=== PATIENT | male | born 1955 | race Caucasian/White ===

== ENCOUNTER 2019-06-14 21:15 | Emergency (ER) | payer MEDICARE, MEDICAID ==
--- NOTE | 2019-06-14 22:02 | EDM.PDOC ---
ED HPI GENERAL MEDICAL PROBLEM - General Chief Complaint: General Stated Complaint: MEDICAL VIA NORTH Time Seen by Provider: 06/14/19 22:00 Source of Information: Reports: Patient History Limitations: Reports: No Limitations - History of Present Illness INITIAL COMMENTS - FREE TEXT/NARRATIVE: There was concern that pt had some very cold feet and they did look a little bluish. He has been more lethargic than usual today. He did eat 2 meals but did not drink his usual volume of fluid. Onset: Today Duration: Hour(s): Location: Reports: Lower Extremity, Left, Lower Extremity, Right, Generalized, Other (pt has been more lethargic. He did have some bright red blood coming from the rectum when he was wiped. ) - Related Data Allergies Allergy/AdvReac Type Severity Reaction Status Date / Time Cephalosporins Allergy Cannot Verified 06/14/19 21:58 Remember codeine Allergy Cannot Verified 06/14/19 21:58 Remember Sulfa (Sulfonamide Allergy Cannot Verified 06/14/19 21:58 Antibiotics) Remember sulfamethoxazole Allergy Cannot Verified 06/14/19 21:58 [From Bactrim] Remember trimethoprim [From Bactrim] Allergy Cannot Verified 06/14/19 21:58 Remember Home Meds: Home Meds Amoxicillin/Potassium Clav [Amox-Clav 875-125 mg Tablet] 1 tab PO BID 06/14/19 [ History] Calcium Carbonate/Vitamin D3 [Calcium 600 + Vit D 200] 1 tab PO DAILY 06/14/19 [ History] Ciclopirox 1 applic TOP DAILY 06/14/19 [History] Ergocalciferol (Vitamin D2) [Vitamin D2] 1 tab PO DAILY 06/14/19 [History] Fluticasone Propionate [Flonase] 1 spray INH DAILY 06/14/19 [History] Gabapentin [Neurontin] 1 tab PO TID 06/14/19 [History] Polyethylene Glycol 3350 [Clearlax] 1 packet PO DAILY 06/14/19 [History] Pravastatin Sodium 1 tab PO DAILY 06/14/19 [History] Pseudoephedrine HCl [Sudogest] 1 tab PO BID 06/14/19 [History] carBAMazepine [carBAMazepine ER] 1 tab PO BID 06/14/19 [History] Past Medical History Neurological History: Reports: Seizure, Other (See Below) Other Neuro History: hydrachep Social & Family History - Tobacco Use Smoking Status *Q: Never Smoker ED ROS GENERAL - Review of Systems Review Of Systems: See Below Constitutional: Reports: Other (pt has been more lethargic. ) HEENT: Reports: No Symptoms Respiratory: Reports: No Symptoms, Other (pt had good oxgenation) Cardiovascular: Reports: No Symptoms Endocrine: Reports: No Symptoms GI/Abdominal: Reports: No Symptoms, Other (pt ate very slowly and his intake was not good as usual. ) : Reports: No Symptoms Musculoskeletal: Reports: No Symptoms Skin: Reports: No Symptoms Neurological: Reports: Other (more lethargic) ED EXAM, GENERAL - Physical Exam Exam: See Below Free Text/Narrative:: pt arrived with very cold feet and at this time they looked quite red. He was more lethargic according to the staff. Exam Limited By: No Limitations General Appearance: Alert, Other (pupils equal and reactive. ) Ears: Normal TMs Nose: Normal Inspection Throat/Mouth: Normal Inspection Head: Atraumatic Neck: Normal Inspection Respiratory/Chest: No Respiratory Distress Cardiovascular: Regular Rate, Rhythm, Other (pulse was 60-70. ) GI/Abdominal: Soft, Non-Tender (Male) Exam: Deferred Rectal (Males) Exam: Deferred Back Exam: Normal Inspection Extremities: Other ( feet look quite red. Pulses are present but diminished-- bilaterally equal. ) Neurological: Alert, Other (pt is a nonverbal person. ) Course - Vital Signs Last Recorded V/S: Last Vital Signs Temp 35.2 C 06/14/19 21:53 Pulse 64 06/14/19 22:47 Resp 16 06/14/19 21:53 BP 122/73 06/14/19 22:47 Pulse Ox 97 06/14/19 22:47 - Orders/Labs/Meds Labs: Laboratory Tests 06/14/19 06/14/19 06/14/19 Range/Units 21:50 21:51 21:53 WBC 14.3 H (4.5-11.0) K/uL RBC 4.86 (4.30-5.90) M/uL Hgb 14.4 (12.0-15.0) g/dL Hct 43.4 (40.0-54.0) % MCV 89 (80-98) fL MCH 30 (27-31) pg MCHC 33 (32-36) % Plt Count 169 (150-400) K/uL Neut % (Auto) 83 H (36-66) % Lymph % (Auto) 9 L (24-44) % [place] % (Auto) 7 H (2-6) % Eos % (Auto) 1 L (2-4) % Baso % (Auto) 0 (0-1) % Sodium (140-148) mmol/L Potassium (3.6-5.2) mmol/L Chloride (100-108) mmol/L Carbon Dioxide (21-32) mmol/L Anion Gap (5.0-14.0) mmol/L BUN (7-18) mg/dL Creatinine (0.8-1.3) mg/dL Est Cr Clr Drug Dosing mL/min Estimated GFR (MDRD) (>60) Glucose (74-106) mg/dL Lactic Acid 2.2 H (0.4-2.0) mmol/L Calcium (8.5-10.1) mg/dL Total Bilirubin (0.2-1.0) mg/dL AST (15-37) U/L ALT (12-78) U/L Alkaline Phosphatase (46-116) U/L C-Reactive Protein 1.18 H (0.0-0.3) mg/dL Total Protein (6.4-8.2) g/dL Albumin (3.4-5.0) g/dL Globulin (2.3-3.5) g/dL Albumin/Globulin Ratio (1.2-2.2) Urine Color (YELLOW) Urine Appearance (CLEAR) Urine pH (5.0-8.0) Ur Specific [place] (1.008-1.030) Urine Protein (NEGATIVE) mg/dL Urine Glucose (UA) (NEGATIVE) mg/dL Urine Ketones (NEGATIVE) mg/dL Urine Occult Blood (NEGATIVE) Urine Nitrite (NEGATIVE) Urine Bilirubin (NEGATIVE) Urine Urobilinogen (0.2-1.0) EU/dL Ur Leukocyte Esterase (NEGATIVE) Urine RBC (0-5) Urine WBC (0-5) Ur Epithelial Cells Amorphous Sediment Urine Bacteria Urine Mucus 06/14/19 06/15/19 Range/Units 21:53 00:05 WBC (4.5-11.0) K/uL RBC (4.30-5.90) M/uL Hgb (12.0-15.0) g/dL Hct (40.0-54.0) % MCV (80-98) fL MCH (27-31) pg MCHC (32-36) % Plt Count (150-400) K/uL Neut % (Auto) (36-66) % Lymph % (Auto) (24-44) % [place] % (Auto) (2-6) % Eos % (Auto) (2-4) % Baso % (Auto) (0-1) % Sodium 140 (140-148) mmol/L Potassium 4.2 (3.6-5.2) mmol/L Chloride 101 (100-108) mmol/L Carbon Dioxide 32 (21-32) mmol/L Anion Gap 7.4 (5.0-14.0) mmol/L BUN 18 (7-18) mg/dL Creatinine 0.9 (0.8-1.3) mg/dL Est Cr Clr Drug Dosing 79.56 mL/min Estimated GFR (MDRD) > 60 (>60) Glucose 139 H (74-106) mg/dL Lactic Acid (0.4-2.0) mmol/L Calcium 9.2 (8.5-10.1) mg/dL Total Bilirubin 0.3 (0.2-1.0) mg/dL AST 21 (15-37) U/L ALT 32 (12-78) U/L Alkaline Phosphatase 58 (46-116) U/L C-Reactive Protein (0.0-0.3) mg/dL Total Protein 7.4 (6.4-8.2) g/dL Albumin 4.1 (3.4-5.0) g/dL Globulin 3.3 (2.3-3.5) g/dL Albumin/Globulin Ratio 1.2 (1.2-2.2) Urine Color Yellow (YELLOW) Urine Appearance Slightly cloudy A (CLEAR) Urine pH 5.5 (5.0-8.0) Ur Specific [place] 1.025 (1.008-1.030) Urine Protein Negative (NEGATIVE) mg/dL Urine Glucose (UA) Negative (NEGATIVE) mg/dL Urine Ketones Negative (NEGATIVE) mg/dL Urine Occult Blood Negative (NEGATIVE) Urine Nitrite Negative (NEGATIVE) Urine Bilirubin Negative (NEGATIVE) Urine Urobilinogen 0.2 (0.2-1.0) EU/dL Ur Leukocyte Esterase Negative (NEGATIVE) Urine RBC 0-5 (0-5) Urine WBC 0-5 (0-5) Ur Epithelial Cells Rare Amorphous Sediment Not seen Urine Bacteria Not seen Urine Mucus Many Meds: Medications Discontinued Medications Generic Name Dose Route Start Last Admin Trade Name Natividad PRN Reason Stop Dose Admin Sodium Chloride 1,000 mls @ 999 mls/hr 06/14/19 22:30 06/14/19 22:56 Normal Saline IV 999 mls/hr ASDIRECTED LORRAINE Administration Nitroglycerin/Dextrose 25 mg in 250 mls @ 6 mls/hr 06/15/19 00:15 Nitroglycerin 25 Mg/D5w 250 Ml IV TITRATE LORRAINE Protocol 10 MCG/MIN Sodium Chloride 1,000 mls @ 999 mls/hr 06/15/19 00:30 06/15/19 00:26 Normal Saline IV 999 mls/hr ASDIRECTED LORRAINE Administration - Re-Assessments/Exams Free Text/Narrative Re-Assessment/Exam: 06/15/19 00:32 wbc is mildly elevated. There is no fever. He has a concentrated urine but it is not infected. He is being treated for a sinus infection with augmentin and has 4-5 more days. A chest xray was done which showed some atelectasis at the base. . He is dehydrated and he was hydrated with 2 liters of fluid. He still has cold feet will wrap in warm blankets. Departure - Departure Time of Disposition: 01:45 Disposition: Home, Self-Care 01 Condition: Fair Clinical Impression: Dehydration, Peripheral vascular disease - Discharge Information Instructions: Peripheral Vascular Disease, Dehydration, Adult Referrals: PCP,None [Primary Care Provider] - Forms: ED Department Discharge Care Plan Goals: push fluids, watch for any temp spikes, Watch for any further rectal bleeding-- pt would not allow an exam, If further concerns call back. Sepsis Event Note - Evaluation Sepsis Screening Result: No Definite Risk - Focused Exam Date Exam was Performed: 06/17/19 Time Exam was Performed: 07:25
[2019-06-14] MEDS ORDERED: Sodium Chloride 0.9% 1,000 ML IV SCH (22:30)
--- NOTE | 2019-06-14 23:20 | CRLCR ---
Indication: Color change. Possible low O2 sats. Technique: Single AP portable view of the chest. Comparison: None Findings: Left basilar atelectasis is identified. The heart is normal in size. No pleural effusion or pneumothorax is identified. Impression: Opacities in the left lung base, most likely representing atelectasis, but infiltrate cannot be excluded Dictated by Nichole Dai MD @ Jun 14 2019 11:17PM Signed by Dr. Nichole Dai @ Jun 14 2019 11:17PM
[2019-06-15] MEDS ORDERED: Nitroglycerin/D5W 25 MG/250 ML BOTTLE IV SCH (00:15)
[2019-06-15] MEDS ORDERED: Sodium Chloride 0.9% 1,000 ML IV SCH (00:30)
== END 2019-06-15 01:57 | disposition home or self-care (01) ==
LOC: JP.ED 21:15
DX: I73.9 Peripheral vascular disease, unspecified (principal); E86.0 Dehydration; Z88.5 Allergy status to narcotic agent; Z88.2 Allergy status to sulfonamides; Z88.1 Allergy status to other antibiotic agents; Z79.899 Other long term (current) drug therapy
CPT/HCPCS: 36415; 71045; 80053; 81001; 83605; 85025; 86140; 96360; 96361; 99283; 99284-25; J7030

== ENCOUNTER 2020-01-28 10:30 | Emergency (ER) | payer MEDICARE, MEDICAID ==
--- NOTE | 2020-01-28 11:47 | EDM.PDOC ---
<Naida Woo M - Last Filed: 01/28/20 13:04> ED HPI GENERAL MEDICAL PROBLEM - General Chief Complaint: General Stated Complaint: MEDICAL VIA [facility]TH Time Seen by Provider: 01/28/20 11:39 Source of Information: Reports: Patient, Other (Care worker from home where patient lives) History Limitations: Reports: No Limitations - History of Present Illness INITIAL COMMENTS - FREE TEXT/NARRATIVE: Patient transported by EMS to ER from [facility]. Report from caregiver that pt "has torso weakness and did not eat cereal as fast as normal" when waking this morning. Caregiver reports pt had trouble with swallowing medications this morning. Pt does move all extremities without deficit and is trying to crawl off the stretcher. Pt does make moaning and incomprehensible sounds. Pt appears to be in no distress based on caregiver knowledge of pt actions and usual reactions. Caregiver indicates that pt has an atypical presentation with illness. caregiver is concerned for heart issues or sinus infection. Onset: Today Onset Date: 01/28/20 Onset Time: 08:00 Duration: Hour(s): Location: Reports: Chest, Other (Weak in torso and difficulty swallowing meds) Quality: Reports: Other (UTD. Pt severely MR. Villasenor is giveing the history with few sign languages from pt) Severity: Mild Improves with: Reports: None, Other ([facility]) Worsens with: Reports: None Associated Symptoms: Reports: No Other Symptoms, Weakness - Related Data Allergies Allergy/AdvReac Type Severity Reaction Status Date / Time Cephalosporins Allergy Cannot Verified 01/28/20 10:33 Remember codeine Allergy Cannot Verified 01/28/20 10:33 Remember Sulfa (Sulfonamide Allergy Cannot Verified 01/28/20 10:33 Antibiotics) Remember sulfamethoxazole Allergy Cannot Verified 01/28/20 10:33 [From Bactrim] Remember trimethoprim [From Bactrim] Allergy Cannot Verified 01/28/20 10:33 Remember Home Meds: Home Meds Ciclopirox 1 applic TOP DAILY 06/14/19 [History] Gabapentin [Neurontin] 600 mg PO TID 06/14/19 [History] Pseudoephedrine HCl [Sudogest] 1 tab PO BID 06/14/19 [History] Acetaminophen [Pain Relief] 650 mg PO BEDTIME 01/28/20 [History] Cetirizine [ZyrTEC] 10 mg PO DAILY 01/28/20 [History] bisacodyL [Dulcolax] 5 mg PO DAILY 01/28/20 [History] clonazePAM [Clonazepam] 1 mg PO BEDTIME 01/28/20 [History] diphenhydrAMINE [Benadryl] 50 mg PO BEDTIME 01/28/20 [History] Past Medical History Neurological History: Reports: Seizure, Other (See Below) Other Neuro History: hydrocephalus, profound mental retardation Social & Family History - Tobacco Use Smoking Status *Q: Never Smoker - Recreational Drug Use Recreational Drug Use: No - Living Situation & Occupation Living situation: Reports: Single, Extended Care Facility ED ROS GENERAL - Review of Systems Review Of Systems: See Below (Pt is nonverbal based on severe MR. Caregiver bedside.) Constitutional: Reports: Weakness HEENT: Reports: No Symptoms Respiratory: Reports: No Symptoms Cardiovascular: Reports: Other (Concern for "heart issues") Endocrine: Reports: No Symptoms GI/Abdominal: Reports: No Symptoms : Reports: No Symptoms Musculoskeletal: Reports: Other (torso weakness) Skin: Reports: No Symptoms Neurological: Reports: No Symptoms Psychiatric: Reports: No Symptoms Hematologic/Lymphatic: Reports: No Symptoms Immunologic: Reports: No Symptoms ED EXAM, GENERAL - Physical Exam Exam: See Below Exam Limited By: Other (History of severe MR. Caregiver bedside. Pt non verbal. Moans and groans.) General Appearance: No Apparent Distress Eye Exam: Bilateral Eye: PERRL Ears: Normal External Exam Ear Exam: Bilateral Ear: Auricle Normal Nose: Normal Inspection Throat/Mouth: Normal Inspection, Normal Lips, Normal Gums, No Airway Compromise Head: Normocephalic Neck: Normal Inspection Respiratory/Chest: No Respiratory Distress, Lungs Clear, Normal Breath Sounds, No Accessory Muscle Use Cardiovascular: Regular Rate, Rhythm, No Edema, No Murmur, No Rub Peripheral Pulses: 2+: Radial (L), Radial (R) GI/Abdominal: Normal Bowel Sounds, Soft (Male) Exam: Deferred Rectal (Males) Exam: Deferred Back Exam: Full Range of Motion Extremities: Normal Inspection, Normal Range of Motion, Normal Capillary Refill Neurological: Alert, Other (Severe MR. Non verbal. Uses a few sign language words) Psychiatric: Other (Baseline ) Skin Exam: Warm, Dry, Intact, Normal Color, Other (Normal self per caregiver) Lymphatic: No Adenopathy EKG INTERPRETATION EKG Date: 01/28/20 Time: 11:36 Rhythm: NSR [place]: Normal P-Wave: Present QRS: Normal ST-T: Normal QT: Normal Course - Re-Assessments/Exams Free Text/Narrative Re-Assessment/Exam: 01/28/20 11:54 Pt triaged to room. Sever Non verbal. Moans and grunts. Waiting for caregiver. EKG, CXR, and labs ordered. EKG -NSR CXR completed 01/28/20 11:57 CBC resulted 01/28/20 12:25 BMP and Trop all resulted. 01/28/20 12:33 All imaging and labs WNl. Will discuss with caregiver and d/c home. Departure - Departure Time of Disposition: 12:33 Disposition: Home, Self-Care 01 Condition: Good Clinical Impression: Near syncope - Discharge Information *PRESCRIPTION DRUG MONITORING PROGRAM REVIEWED*: Not Applicable *COPY OF PRESCRIPTION DRUG MONITORING REPORT IN PATIENT TAY: Not Applicable Instructions: Near-Syncope, Agbn-[id number] Referrals: PCP,None [Primary Care Provider] - Forms: ED Department Discharge Additional Instructions: Will d/c to [facility] with no medication changes. All imaging and labs were negative. If the patient has another episode of weakness, please seek medical care or come to the nearest ER. Sepsis Event Note (ED) - Evaluation Sepsis Screening Result: No Definite Risk - Problem List & Annotations (1) Near syncope SNOMED Code(s): 097860508 Code(s): R55 - SYNCOPE AND COLLAPSE Status: Acute Priority: Low Onset Date: ~01/28/20 - Problem List Review Problem List Initiated/Reviewed/Updated: Yes - Assessment/Plan Assessment:: Will d/c to [facility] with no medication changes. All imaging and labs were negative. If the patient has another episode of weakness, please seek medical care or come to the nearest ER. <Nato Beltran - Last Filed: 01/28/20 13:41> Course - Vital Signs Last Recorded V/S: Last Vital Signs Temp 97.3 F 01/28/20 10:45 Pulse 72 01/28/20 11:28 Resp 18 01/28/20 11:28 BP 129/76 01/28/20 11:28 Pulse Ox 97 01/28/20 11:28 - Orders/Labs/Meds Orders: Active Orders 24 hr Category Date Time Status EKG Documentation Completion [RC] ASDIRECTED Care 01/28/20 11:36 Active EKG 12 Lead [EK] Routine Ther 01/28/20 11:34 Ordered Labs: Laboratory Tests 01/28/20 01/28/20 Range/Units 11:52 11:52 WBC 6.0 (4.5-11.0) K/uL RBC 4.36 (4.30-5.90) M/uL Hgb 12.6 (12.0-15.0) g/dL Hct 38.7 L (40.0-54.0) % MCV 89 (80-98) fL MCH 29 (27-31) pg MCHC 33 (32-36) % Plt Count 99 L (150-400) K/uL Neut % (Auto) 65 (36-66) % Lymph % (Auto) 21 L (24-44) % [place] % (Auto) 12 H (2-6) % Eos % (Auto) 2 (2-4) % Baso % (Auto) 0 (0-1) % Sodium 148 (140-148) mmol/L Potassium 4.1 (3.6-5.2) mmol/L Chloride 112 H (100-108) mmol/L Carbon Dioxide 28 (21-32) mmol/L Anion Gap 12.1 (5.0-14.0) mmol/L BUN 24 H (7-18) mg/dL Creatinine 0.9 (0.8-1.3) mg/dL Est Cr Clr Drug Dosing 79.56 mL/min Estimated GFR (MDRD) > 60 (>60) Glucose 107 H (74-106) mg/dL Calcium 8.8 (8.5-10.1) mg/dL Troponin I < 0.017 (0.000-0.056) ng/mL Departure - Departure Time of Disposition: 12:46 Sepsis Event Note (ED) - Focused Exam Vital Signs: Vital Signs Temp Pulse Resp BP Pulse Ox 01/28/20 11:28 72 18 129/76 97 01/28/20 10:45 97.3 F 96 16 141/78 H 96 01/28/20 10:33 97.3 F 96 16 141/78 H 96 Attestation - Student - Attestation Statement Attestation Statement: I personally performed or re-performed the physical examination and medical decision making. I have verified all student documentation or findings, including history, physical exam and/or medical decision making.
--- NOTE | 2020-01-28 12:47 | CR ---
CHEST: Portable 01/28/2020 11:56 AM CLINICAL HISTORY:Chest pain COMPARISON:2019 FINDINGS: There is less than optimal inspiration which exaggerates lung markings. There is patchy density in both lung bases. Some of this may be atelectasis but bilateral pneumonic infiltrates is not excluded. Impression: Limited study Bilateral lower lobe opacities are suspect for pneumonic infiltrate. Upright two-view chest recommended when patient's condition allows
== END 2020-01-28 12:47 | disposition home or self-care (01) ==
LOC: JP.ED 10:30
DX: R55 Syncope and collapse (principal); R53.1 Weakness; R56.9 Unspecified convulsions; Z88.1 Allergy status to other antibiotic agents; Z88.5 Allergy status to narcotic agent; Z88.2 Allergy status to sulfonamides; Z79.899 Other long term (current) drug therapy
CPT/HCPCS: 36415; 71045; 71045-26; 80048; 84484; 85025; 93005; 93010; 99284; 99285-25

== ENCOUNTER 2021-08-21 11:15 | Emergency (ER) | payer MEDICARE, MEDICAID ==
[2021-08-21] MEDS ORDERED: Clindamycin Phosphate 900 MG/6 ML SDV IM STA (12:46)
== END 2021-08-21 13:17 | disposition home or self-care (01) ==
LOC: JP.ED 11:15
DX: L03.115 Cellulitis of right lower limb (principal); L02.425 Furuncle of right lower limb; E78.00 Pure hypercholesterolemia, unspecified; I10 Essential (primary) hypertension; Z88.5 Allergy status to narcotic agent; Z88.1 Allergy status to other antibiotic agents; Z88.2 Allergy status to sulfonamides; Z88.8 Allergy status to other drugs, medicaments and biological substances
CPT/HCPCS: 96372; 99282; J3490